=== PATIENT | female | born 1980 | race American Indian/Alaskan Native ===

== ENCOUNTER 2017-12-11 07:35 | Inpatient (IN) | payer MEDICAID ==
[2017-12-11] MEDS: Lactated Ringer's 1,000 ML IV ONE ×3 (09:00→15:00)
[2017-12-11] MEDS: Lactated Ringer's 1,000 ML IV SCH ×2 (09:00→16:00)
[2017-12-11 10:35] LABS: BASO % 0.2 % (0.0-2.0); EOS # 0.1 K/uL (0.0-0.7); EOS % 1.3 % (0.0-4.0); LYMPH # 2.7 K/uL (1.0-4.3); LYMPH % 29.9 % (20.0-40.0); MEAN CELL VOLUME 86.6 fl (81.0-99.0); MEAN CORPUSCULAR HEMOGLOBIN 29.4 pg (27.0-31.0); MEAN PLATELET VOLUME 10.3 fl (7.2-11.7); MONO # 0.7 K/uL (0.0-0.8); MONO % 8.1 % (0.0-10.0); NEUT # 5.5 K/uL (1.8-7.0); NEUT % 60.5 % (50.0-75.0); NRBC % 0.3 % (0.0-0.0); RBC 4.44 Mil/uL (3.80-5.20); RED CELL DISTRIBUTION WIDTH 14.5 % (11.5-14.5)
[2017-12-11] MEDS ORDERED: Oxytocin 30 UNIT 30 UNITS/500 ML BAG IV ONE ×3 (11:09→22:04)
[2017-12-11] MEDS ORDERED: OXYTOCIN/0.9 % NS 20 UNIT/1,000 ML BAG IV SCH (11:15)
[2017-12-11] MEDS ORDERED: OXYTOCIN/0.9 % NS 20 UNIT/1,000 ML BAG IV ONE (11:23)
[2017-12-11] MEDS ORDERED: Lidocaine 2% MPF (5 ml) Inj ONE (11:23)
[2017-12-11] MEDS ORDERED: Fentanyl/Bupivacaine HCl 250 ML EPI ONE (15:00)
--- NOTE | 2017-12-11 21:01 | OBADHP ---
Datetime: 12/11/2017 20:51 Admit Comment, IP Provider: iup at term uneventful care admitted for delivery Pelvic Type - PN: Adequate Extremities - PN: Normal Abdomen - PN: Normal Back - PN: Normal Breast - PN: Normal Lungs - PN: Normal Heart - PN: Normal Thyroid - PN: Normal Neurologic - PN: Normal HEENT - PN: Normal General - PN: Normal Presentation-Admit: Vertex FHR - Baseline A Provider: 140 Membranes, Provider: Intact Contraction Comments Provider: irregular Gestation - Est Wks by US: 40+ Vital Signs Provider: Reviewed; Within Normal Limits IP Chief Complaint: Uterine contractions NICHD Variability Prov Fetus A: Moderate 6-25bpm NICHD Accel Fetus A IP Provider: 10X10 NICHD Decel Fetus A IP Provider: None Dilatation, Provider: 3-4cm Effacement, Provider: 75 Station, Provider: -2 Genitourinary Exam: Normal DTRs - PN: Normal EGA AdmitDate IP: 93.0 IP Admit Plan: Admit to unit; Initiate labor induction protocol
[2017-12-11] MEDS ORDERED: Benzocaine/Menthol SPRAY TOP PRN ×2 (21:10→22:59)
[2017-12-11] MEDS ORDERED: Oxycodone/Acetaminophen 5/325 mg Tab PO PRN ×4 (21:10→22:59)
[2017-12-11] MEDS ORDERED: Acetaminophen-Codeine 300/30 mg Tab PO PRN ×2 (21:10→22:59)
--- NOTE | 2017-12-11 21:22 | OBDS ---
MATERNAL INFORMATION Estimated Blood Loss (ml): 300ml Maternal Complications: None Provider Comments: delivery of live baby girl 9/9 clesr fluid occiput posterior placenta intac t perineum intact LABOR SUMMARY EDC: 12/05/2016 00:00 LABOR INFORMATION Group B Beta Strep: Negative Steroids Given: None Reason Steroids Not Administered: Not Applicable MEMBRANES Membranes Rupture Method: Artificial Rupture of Membranes: 12/11/2017 14:15 Amniotic Fluid Color: Clear Amniotic Fluid Amount: Moderate Amniotic Fluid Odor: Normal VAGINAL DELIVERY Episiotomy: None Laceration Extension: N/A Laceration Type: None Count Comment: correct
[2017-12-12 07:23] LABS: HEMOGLOBIN 11.8 g/dL (12.0-16.0); MEAN CELL VOLUME 87.5 fl (81.0-99.0); MEAN CORPUSCULAR HGB CONC 33.1 g/dL (33.0-37.0); RBC 4.08 Mil/uL (3.80-5.20); RED CELL DISTRIBUTION WIDTH 14.5 % (11.5-14.5)
[2017-12-12] MEDS ORDERED: Multivitamin With Minerals Tab PO SCH (09:00)
[2017-12-12] MEDS: Multivitamin With Minerals Tab PO SCH (09:03)
[2017-12-13] MEDS: Multivitamin With Minerals Tab PO SCH (09:00)
--- NOTE | 2017-12-13 10:09 | OBPPN ---
Datetime: 12/13/2017 10:06 PP Pain Prov: Within normal limits PP Nausea Prov: Denies PP Flatus Prov: Yes PP BM Prov: Yes PP Breasts Prov: Normal PP Heart Prov: Normal PP Lungs Prov: Normal PP Abdomen/Uterus Prov: Normal PP Lochia Prov: Normal PP Vulva/Perineum Prov: Normal PP CVA Tenderness Prov: Normal PP Extremities Prov: Normal PP Progress Prov: Normal PP Impression Prov: Normal progression PP Plan Prov: Continue present management PP Progress Note Prov: stable ppd2 dc home today IP PP Procedures: None Datetime: 12/12/2017 19:05 Vital Signs Provider PP: Reviewed; Within Normal Limits
--- NOTE | 2017-12-13 10:12 | OBDCSUM ---
Datetime: 12/13/2017 10:08 Discharged to, Provider: Home Follow up at, Provider: Dr Delgado Disch Instr Activity: Normal activity; Bedrest; May be up to bathroom; May be up for meals; May Show er Disch Instr Diet: Regular Discharge Instructions, Provider: Routine instructions given Discharge Diagnosis, Provider: Term Delivered Discharge Time: 12/13/2017 10:08 Follow up in weeks, Provider: in office 5-6weeks Disch Referrals: None Disch Activity Restrictions: No exercising; No lifting; No driving; Minimize walking; Minimize stair -climbing; No sexual activity; Nothing in vagina - [place], tampons, douche Discharge Comment, Provider: dc home today call office if any problem Contraception after Delivery: Undecided
[2017-12-13 20:24] VITALS: BP 136/82; PULSE 81; RESP 19; TEMP 98.1; O2SAT 100
== END 2017-12-13 11:20 | disposition home or self-care (01) | DRG 373 ==
LOC: H.L&D 07:42 → H.OB/GYN 23:50
PROVIDERS: ADMIT Specialist; ATTEND Specialist
PROC: 10E0XZZ Delivery of Products of Conception, External Approach (ICD-10-PCS; principal; 2017-12-11)
PROC: 4A1HXCZ Monitoring of Products of Conception, Cardiac Rate, External Approach (ICD-10-PCS; 2017-12-11)
DX: O48.0 Post-term pregnancy (principal); Z3A.41 41 weeks gestation of pregnancy; Z37.0 Single live birth